=== PATIENT | male | born 1980 | race Hispanic/Latino ===

== ENCOUNTER 2016-08-24 12:49 | Emergency (ER) | payer SELFPAY ==
[2016-08-24] MEDS ORDERED: ZOFRAN IV ONE (13:15)
[2016-08-24] MEDS ORDERED: MORPHINE IV ONE (13:15)
[2016-08-24] MEDS ORDERED: MORPHINE ONE (13:30)
[2016-08-24] MEDS ORDERED: ZOFRAN ONE (13:30)
--- NOTE | 2016-08-24 13:45 | XRay Report ---
Right fifth finger: There is laceration and swelling of the tissues involving the mid fifth digit laterally and dorsally. There is no foreign body and no underlying bone or joint injury identified. An AP view to include the remainder the hand is unremarkable. Impression: Soft tissue injury of the fifth digit.
[2016-08-24] MEDS ORDERED: XYLOCAINE 1% 20 mL ONE (14:37)
--- NOTE | 2016-08-24 14:46 | Emergency Department Report ---
ED Upper Extremity Inj HPI - General Chief Complaint: Extremity Injury, Upper Stated Complaint: RT FINGER CUT Time Seen by Provider: 08/24/16 13:42 Source: patient Mode of arrival: Ambulatory Limitations: No Limitations - History of Present Illness Complaint: Injury to:: left, finger -: Sudden Other Extremity Injury: Fingers: Left Other Injuries: none Handedness: right Severity scale (0 -10): 5 Improves With: none Worsens With: immobilization Context: direct blow, crush Associated Symptoms: denies other symptoms Treatments Prior to Arrival: cold therapy - Related Data Previous Rx's Medication Instructions Recorded Last Taken Type Diclofenac Sodium 75 mg PO BID #20 tablet. 08/24/16 Unknown Rx Sulfamethoxazole/Trimethoprim 1 tab PO BID #20 tab 08/24/16 Unknown Rx [Bactrim 400-80 mg] Allergies Allergy/AdvReac Type Severity Reaction Status Date / Time No Known Allergies Allergy Verified 08/24/16 13:34 ED Review of Systems ROS: Stated complaint: RT FINGER CUT Other details as noted in HPI Constitutional: denies: chills, fever Eyes: denies: eye pain, eye discharge, vision change ENT: denies: ear pain, throat pain Respiratory: denies: cough, shortness of breath, wheezing Cardiovascular: denies: chest pain, palpitations Endocrine: no symptoms reported Gastrointestinal: denies: abdominal pain, nausea, diarrhea Genitourinary: denies: urgency, dysuria Musculoskeletal: denies: back pain, joint swelling, arthralgia Skin: denies: rash, lesions Neurological: denies: headache, weakness, paresthesias Psychiatric: denies: anxiety, depression Hematological/Lymphatic: denies: easy bleeding, easy bruising ED Past Medical Hx - Past Medical History Previous Medical History?: No - Surgical History Past Surgical History?: Yes Additional Surgical History: abd surgery - Social History Smoking Status: Current Every Day Smoker Substance Use Type: Alcohol, Marijuana - Medications Home Medications: Home Medications Medication Instructions Recorded Confirmed Last Taken Type Diclofenac Sodium 75 mg PO BID #20 tablet. 08/24/16 Unknown Rx Sulfamethoxazole/Trimethoprim 1 tab PO BID #20 tab 08/24/16 Unknown Rx [Bactrim 400-80 mg] ED Physical Exam - General Limitations: No Limitations General appearance: alert, in no apparent distress - Head Head exam: Present: atraumatic, normocephalic - Eye Eye exam: Present: normal appearance - ENT ENT exam: Present: normal exam, mucous membranes moist - Neck Neck exam: Present: normal inspection - Respiratory Respiratory exam: Present: normal lung sounds bilaterally. Absent: respiratory distress - Cardiovascular Cardiovascular Exam: Present: regular rate, normal rhythm. Absent: systolic murmur, diastolic murmur, rubs, gallop - GI/Abdominal GI/Abdominal exam: Present: soft, normal bowel sounds - Rectal Rectal exam: Present: deferred - Extremities Exam Extremities exam: Present: normal inspection - Back Exam Back exam: Present: normal inspection - Neurological Exam Neurological exam: Present: alert, oriented X3 - Psychiatric Psychiatric exam: Present: normal affect, normal mood - Skin Skin exam: Present: warm, dry, intact, normal color. Absent: rash ED Course Vital Signs 08/24/16 12:59 Temperature 98.2 F Pulse Rate 109 H Respiratory 16 Rate Blood Pressure 130/87 O2 Sat by Pulse 99 Oximetry - Laceration /Wound Repair Right Finger Wound Location: upper extremity Wound's Depth, Shape: contused tissue Wound Explored: contaminated Betadine Prep?: Yes Anesthesia: 1% Lidocaine Wound Debrided: moderate Wound Repaired With: sutures Suture Size/Type: 4:0 Number of Sutures: 12 Sterile Dressing Applied?: Yes ED Medical Decision Making - Medical Decision Making laceration repaired here iwth no complications neurovbascular intact before and after , able to extend and flex the finger fully. Critical care attestation.: If time is entered above; I have spent that time in minutes in the direct care of this critically ill patient, excluding procedure time. ED Disposition Clinical Impression: Finger laceration Disposition: Z-[id number] HOSPICE- MED FAC Is pt being admited?: No Does the pt Need Aspirin: No Condition: Good Instructions: Laceration (ED), Suture Care (ED) Prescriptions: Diclofenac Sodium 75 mg PO BID #20 tablet. Sulfamethoxazole/Trimethoprim [Bactrim 400-80 mg] 1 tab PO BID #20 tab Time of Disposition: 16:39
[2016-08-24] MEDS ORDERED: TRIPLE ANTIBIOTIC TP ONE ×3 (16:30→18:00)
[2016-08-24 17:03] VITALS: BP 123/76
== END 2016-08-24 17:00 ==
LOC: ED 12:49
DX: S61.219A Laceration without foreign body of unspecified finger without damage to nail, initial encounter (principal); F17.200 Nicotine dependence, unspecified, uncomplicated; F12.90 Cannabis use, unspecified, uncomplicated; W45.8XXA Other foreign body or object entering through skin, initial encounter; Y93.89 Activity, other specified; Y99.9 Unspecified external cause status; Y92.89 Other specified places as the place of occurrence of the external cause
CPT/HCPCS: 12001; 73130; 96374; 96375; 99284; J2270; J2405; A6250

== ENCOUNTER 2016-11-14 10:32 | Emergency (ER) | payer SELFPAY ==
[2016-11-14 10:57] VITALS: BP 131/95
--- NOTE | 2016-11-14 11:29 | Emergency Department Report ---
Chief Complaint: Abdominal Pain Stated Complaint: KIDNEY STONE Time Seen by Provider: 11/14/16 11:20 - HPI History of Present Illness: Patient reports that he has a history of kidney stone and he is complaining of left flank pain that is radiating to his left abdomen. Pain is 10 out of 10 and throbbing and aching. Denies any nausea or vomiting. He does not have a urologist. He said he took [id number] pain medication but it didn't help. Patient has a history of kidney stones and past surgical history of abdominal surgery. He denies any fever or chills, denies any urinary burning frequency or urgency. He denies any blood in his urine. - ROS Review of Systems: All systems are negative unless stated in HPI above - Exam Vital Signs: Vital Signs 11/14/16 10:53 Temperature 97.6 F Pulse Rate 85 Respiratory 16 Rate Blood Pressure 131/95 O2 Sat by Pulse 98 Oximetry Physical Exam: Gen.: This is a 36-year-old male well-nourished well-developed and nontoxic in appearance. Abdomen: Soft, nontender to palpate in all quadrants, no guarding or rebound tenderness. Normal bowel sounds. Positive left CVA tenderness MSE screening note: Focused history and physical exam performed. Due to findings the following was ordered:See MDM ED Medical Decision Making - Medical Decision Making MDM: Patient screened by provider in triage area. Appropriate protocol initiated and patient to be seen in main ED by MD ED Disposition for MSE Condition: Stable
--- NOTE | 2016-11-14 12:31 | Cat Scan Report ---
CT OF THE ABDOMEN AND PELVIS WITHOUT CONTRAST HISTORY: Flank pain. TECHNIQUE: Helical CT without contrast. Sagittal and coronal reformatted images. FINDINGS: A 6 mm calculus is identified in the mid to distal left ureter on image 127, series 2. There is moderate history left hydronephrosis. A 3 mm calyceal stone is noted at the inferior pole left kidney. No right nephrolithiasis. Within the limits of a noncontrast exam, the abdominal and pelvic viscera are within normal limits. The liver, biliary system, pancreas, spleen, adrenal glands and bladder are unremarkable. The bowel loops are normal caliber and wall thickness. Normal appendix. The aorta is normal caliber. No ascites, bulky adenopathy or inflammatory changes. The lung bases are clear. Normal heart size. No suspicious bony lesion. IMPRESSION: Left nephrolithiasis. 6 mm mid to distal left ureteral stone,obstructing.
[2016-11-14 12:36] LABS: Anion Gap 17 mmol/L; Blood Urea Nitrogen 9 mg/dL (9-20); Calcium 9.1 mg/dL (8.4-10.2); Carbon Dioxide 28 mmol/L (22-30); Chloride 99.2 mmol/L (98-107); Eosinophils % (Auto) 1.5 % (0.0-4.3); Glucose 89 mg/dL (75-100); Hematocrit 45.7 % (35.5-45.6); Hemoglobin 15.3 gm/dl (11.8-15.2); Mean Corpuscular HGB Conc 34 % (32-34); Mean Corpuscular Hemoglobin 32 pg (28-32); Mean Corpuscular Volume 94 fl (84-94); Platelet Count 275 K/mm3 (140-440); Potassium 3.4 mmol/L (3.6-5.0); Red Blood Count 4.84 M/mm3 (3.65-5.03); Red Cell Distribution Width 12.9 % (13.2-15.2); Sodium 141 mmol/L (137-145); White Blood Count 9.8 K/mm3 (4.5-11.0)
[2016-11-14] MEDS ORDERED: TORADOL IV ONE (12:41)
[2016-11-14 14:25] LABS: Bilirubin,Urine NEG (Negative); Blood,Urine LG (Negative); Ketones,Urine NEG (Negative); Leukocyte Esterase,Urine SM (Negative); Mucus,Urine 2+ /HPF; Nitrite,Urine NEG (Negative); Urobilinogen,Urine < 2.0 mg/dL (<2.0)
[2016-11-14 14:31] LABS: RBC,Urine > 182.0 /HPF (0.0-6.0)
[2016-11-14] MEDS ORDERED: ZOFRAN IV ONE (14:37)
[2016-11-14] MEDS ORDERED: NACL 0.9% 1000 ML 1,000 ML IV ONE (14:37)
[2016-11-14] MEDS ORDERED: MORPHINE IV ONE (14:38)
--- NOTE | 2016-11-14 14:49 | Emergency Department Report ---
ED Abdominal Pain HPI - General Chief Complaint: Abdominal Pain Stated Complaint: KIDNEY STONE Time Seen by Provider: 11/14/16 11:25 Source: patient Mode of arrival: Ambulatory Limitations: No Limitations - History of Present Illness Initial Comments: 6 hours of left-sided groin and flank pain. Patient states that he has a history of kidney stones. He has had 6 stents the past. Denies fevers chills Bust does have some nausea vomiting. MD Complaint: abdominal pain -: Sudden Location: L flank Radiation: other (left groin) Migration to: no migration Severity scale (0 -10): 10 Improves With: nothing Worsens With: nothing Associated Symptoms: nausea, vomiting - Related Data Previous Rx's Medication Instructions Recorded Last Taken Type Diclofenac Sodium 75 mg PO BID #20 tablet. 08/24/16 Unknown Rx Sulfamethoxazole/Trimethoprim 1 tab PO BID #20 tab 08/24/16 Unknown Rx [Bactrim 400-80 mg] HYDROcodone/APAP 5-325 [[place] 1 each PO Q6HR PRN #10 tablet 11/14/16 Unknown Rx 5-325 mg TAB] Ibuprofen [Motrin] 600 mg PO Q8H PRN #30 tablet 11/14/16 Unknown Rx Ondansetron [Zofran Odt] 4 mg PO Q6HR PRN #10 tab.rapdis 11/14/16 Unknown Rx Tamsulosin [Flomax] 0.4 mg PO QDAY #10 cap 11/14/16 Unknown Rx Allergies Allergy/AdvReac Type Severity Reaction Status Date / Time No Known Allergies Allergy Verified 08/24/16 13:34 ED Review of Systems ROS: Stated complaint: KIDNEY STONE Other details as noted in HPI Comment: All other systems reviewed and negative Constitutional: denies: chills, fever Eyes: denies: eye pain, eye discharge, vision change ENT: denies: ear pain, throat pain Respiratory: denies: cough, shortness of breath, wheezing Cardiovascular: denies: chest pain, palpitations Endocrine: no symptoms reported Gastrointestinal: denies: abdominal pain, nausea, diarrhea Genitourinary: frequency. denies: urgency, dysuria Musculoskeletal: denies: back pain, joint swelling, arthralgia Skin: denies: rash, lesions Neurological: denies: headache, weakness, paresthesias Psychiatric: denies: anxiety, depression Hematological/Lymphatic: denies: easy bleeding, easy bruising ED Past Medical Hx - Past Medical History Previous Medical History?: Yes Hx Kidney Stones: Yes - Surgical History Past Surgical History?: Yes Additional Surgical History: abd surgery - Family History Family history: no significant - Social History Smoking Status: Current Every Day Smoker Substance Use Type: Alcohol, Marijuana, Non Opiate Pain - Medications Home Medications: Home Medications Medication Instructions Recorded Confirmed Last Taken Type Diclofenac Sodium 75 mg PO BID #20 tablet. 08/24/16 Unknown Rx Sulfamethoxazole/Trimethoprim 1 tab PO BID #20 tab 08/24/16 Unknown Rx [Bactrim 400-80 mg] HYDROcodone/APAP 5-325 [[place] 1 each PO Q6HR PRN #10 tablet 11/14/16 Unknown Rx 5-325 mg TAB] Ibuprofen [Motrin] 600 mg PO Q8H PRN #30 tablet 11/14/16 Unknown Rx Ondansetron [Zofran Odt] 4 mg PO Q6HR PRN #10 tab.rapdis 11/14/16 Unknown Rx Tamsulosin [Flomax] 0.4 mg PO QDAY #10 cap 11/14/16 Unknown Rx ED Physical Exam - General Limitations: No Limitations General appearance: alert, in no apparent distress - Head Head exam: Present: atraumatic, normocephalic - Eye Eye exam: Present: normal appearance - ENT ENT exam: Present: mucous membranes moist - Neck Neck exam: Present: normal inspection - Respiratory Respiratory exam: Present: normal lung sounds bilaterally. Absent: respiratory distress - Cardiovascular Cardiovascular Exam: Present: regular rate, normal rhythm. Absent: systolic murmur, diastolic murmur, rubs, gallop - GI/Abdominal GI/Abdominal exam: Present: soft, normal bowel sounds. Absent: distended, tenderness, guarding - Rectal Rectal exam: Present: deferred - Extremities Exam Extremities exam: Present: normal inspection - Back Exam Back exam: Present: normal inspection. Absent: CVA tenderness (R), CVA tenderness (L) - Neurological Exam Neurological exam: Present: alert, oriented X3 - Psychiatric Psychiatric exam: Present: normal affect, normal mood - Skin Skin exam: Present: warm, dry, intact, normal color. Absent: rash ED Course Vital Signs 11/14/16 11/14/16 10:53 12:50 Temperature 97.6 F Pulse Rate 85 Respiratory 16 22 Rate Blood Pressure 131/95 O2 Sat by Pulse 98 Oximetry ED Medical Decision Making - Lab Data Result diagrams: 11/14/16 11:42 11/14/16 11:42 Laboratory Results - last 24 hr 11/14/16 11/14/16 11/14/16 11:42 11:42 Unknown WBC 9.8 RBC 4.84 Hgb 15.3 H Hct 45.7 H MCV 94 MCH 32 MCHC 34 RDW 12.9 L Plt Count 275 Lymph % (Auto) 25.2 Haak[place] % (Auto) 10.6 H Eos % (Auto) 1.5 Baso % (Auto) 1.0 Lymph # 2.5 Haakon # 1.0 H Eos # 0.1 Baso # 0.1 Seg Neutrophils % 61.7 Seg Neutrophils # 6.0 Sodium 141 Potassium 3.4 L Chloride 99.2 Carbon Dioxide 28 Anion Gap 17 BUN 9 Creatinine 0.9 Estimated GFR > 60 BUN/Creatinine Ratio 10.00 Glucose 89 Calcium 9.1 Urine Color Yellow Urine Turbidity Clear Urine pH 5.0 Ur Specific [place] 1.013 Urine Protein 30 mg/dl Urine Glucose (UA) Neg Urine Ketones Neg Urine Blood Lg Urine Nitrite Neg Urine Bilirubin Neg Urine Urobilinogen < 2.0 Ur Leukocyte Esterase Sm Urine WBC (Auto) 10.0 H Urine RBC (Auto) > 182.0 U Epithel Cells (Auto) < 1.0 Urine Mucus 2+ - Medical Decision Making Patient with known history of kidney stones here with left flank pain. He appears well. He felt relief with Toradol. She has significant red blood cells in his urine. Given that this he's had multiple stones are seen any further image the patient. Plan to treat him. Clean and will have him follow- up. Counseled patient to return to the emergency department for fevers chills or nausea or vomiting. Portions of this chart were dictated with dictation software. There may be dictation errors contained within this note. Critical care attestation.: If time is entered above; I have spent that time in minutes in the direct care of this critically ill patient, excluding procedure time. ED Disposition Clinical Impression: Renal colic on left side Disposition: DC-01 TO HOME OR SELFCARE Is pt being admited?: No Condition: Stable Instructions: Renal Colic (ED) Prescriptions: HYDROcodone/APAP 5-325 [[place] 5-325 mg TAB] 1 each PO Q6HR PRN #10 tablet PRN Reason: Pain Ibuprofen [Motrin] 600 mg PO Q8H PRN #30 tablet PRN Reason: Pain Ondansetron [Zofran Odt] 4 mg PO Q6HR PRN #10 tab.rapdis PRN Reason: Nausea Tamsulosin [Flomax] 0.4 mg PO QDAY #10 cap Referrals: PRIMARY CARE,MD [Primary Care Provider] - 3-5 Days
[2016-11-14] MEDS ORDERED: FLOMAX PO ONE (15:00)
== END 2016-11-14 16:00 | disposition home or self-care (01) ==
LOC: ED 10:32
DX: N23 Unspecified renal colic (principal); F17.210 Nicotine dependence, cigarettes, uncomplicated; F12.10 Cannabis abuse, uncomplicated
CPT/HCPCS: 36415; 74176; 80048; 81001; 85025; 96361; 96374; 96375; 99284; J1885; J2270; J2405; J7030

== ENCOUNTER 2017-02-20 15:32 | Emergency (ER) | payer SELFPAY ==
[2017-02-20 16:06] VITALS: BP 125/84
== END 2017-02-21 01:03 | disposition left against medical advice (07) ==
LOC: ED 15:32
DX: M79.631 Pain in right forearm (principal); Z53.21 Procedure and treatment not carried out due to patient leaving prior to being seen by health care provider

== ENCOUNTER 2017-02-21 12:38 | Emergency (ER) | payer SELFPAY ==
[2017-02-21 13:32] VITALS: BP 116/75
== END 2017-02-21 16:51 | disposition left against medical advice (07) ==
LOC: ED 12:38
DX: Z53.21 Procedure and treatment not carried out due to patient leaving prior to being seen by health care provider (principal)